=== PATIENT | female | born 1960 | race Caucasian/White ===

== ENCOUNTER 2016-10-16 15:31 | Emergency (ER) | payer OTHER ==
[~2016-10-16] VITALS: Ht 167.6 cm; Wt 72.6 kg
[2016-10-16 16:25] VITALS: BP 129/72
[2016-10-16] MEDS ORDERED: OXYCODONE/APAP 7.5/325 TABLET. PO ONE (17:45)
--- NOTE | 2016-10-16 17:46 | PHYS DOC ---
Past Medical History Past Medical History: Asthma Past Surgical History: No Surgical History Alcohol Use: None Drug Use: None Adult General Chief Complaint Chief Complaint: DENTAL PROBLEM HPI HPI Patient is a 56 year old female who presents with complaint of left mandibular swelling. Patient states that she was seen by dentist yesterday and started on clindamycin for treatment of an abscessed tooth. Patient states that since yesterday the swelling has gotten significantly worse and patient is complaining of 10 out of 10 pain currently. Patient states that she is having difficulty opening her mouth secondary to pain. Patient denies any fevers. Patient has taken a total of 3 doses of her clindamycin. Patient denies history of similar symptoms. Review of Systems Review of Systems Constitutional: Denies fever or chills [] Eyes: Denies change in visual acuity, redness, or eye pain [] HENT: Mandibular swelling, dental pain [] Respiratory: Denies cough or shortness of breath [] Cardiovascular: Denies chest pain or edema [] GI: Denies abdominal pain, nausea, vomiting, bloody stools or diarrhea [] : Denies dysuria or hematuria [] Musculoskeletal: Denies back pain or joint pain [] Integument: Denies rash or skin lesions [] Neurologic: Denies headache, focal weakness or sensory changes [] Endocrine: Denies polyuria or polydipsia [] Current Medications Current Medications Current Medications Medications (Trade) Dose Ordered Sig/Lyndsay Start Time Stop Time Status Last Admin Dose Admin Diphtheria/ Tetanus/Acell Pertussis (Boostrix) 0.5 ml ONCE ONCE 10/16/16 18:00 10/16/16 18:01 DC 10/16/16 17:59 0.5 ML Oxycodone/ Acetaminophen (Percocet 7.5/ 325) 1 tab 1X ONCE 10/16/16 17:45 10/16/16 17:47 DC 10/16/16 17:58 1 TAB Allergies Allergies Allergies Coded Allergies Type Severity Reaction Last Updated Verified No Known Drug Allergies 10/16/16 No Physical Exam Physical Exam Constitutional: Alert, afebrile, appears in moderate to severe discomfort. [] HENT: Normocephalic, atraumatic, bilateral external ears normal, moderate soft tissue swelling along left mandible with direct tenderness to palpation, tenderness and fluctuance along left gingival ridge near tooth #18, oropharynx moist, no oral exudates, nose normal. [] Eyes: PERRLA, EOMI, conjunctiva normal, no discharge. [] Neck: Normal range of motion, no tenderness, supple, no stridor. [] Cardiovascular:Heart rate regular rhythm, no murmur [] Lungs & Thorax: Bilateral breath sounds clear to auscultation [] Abdomen: Bowel sounds normal, soft, no tenderness, no masses, no pulsatile masses. [] Extremities: No tenderness, no cyanosis, no clubbing, ROM intact, no edema. [] Neurologic: Alert and oriented X 3, normal motor function, normal sensory function, no focal deficits noted. [] Current Patient Data Vital Signs Vital Signs Date Time Temp Pulse Resp B/P Pulse Ox O2 Delivery O2 Flow Rate FiO2 10/16/16 17:58 18 Room Air 10/16/16 16:25 98.1 62 129/72 95 98.1 EKG EKG Not performed [] Radiology/Procedures Radiology/Procedures Not performed [] Course & Med Decision Making Course & Med Decision Making Pertinent Labs and Imaging studies reviewed. (See chart for details) Patient had successful incision and drainage of her dental abscess in the emergency department. On reevaluation, patient states that her symptoms are improving. Advised patient to continue on her prescription of clindamycin and pain medication given to her from her previous provider. Advised to follow-up with her dentist as scheduled next week and return to the emergency department for any worsening symptoms. Patient voiced understanding and in agreement with treatment plan. Dragon Disclaimer Dragon Disclaimer This electronic medical record was generated, in whole or in part, using a voice recognition dictation system. Incision and Drainage Indication: Dental abscess Procedure: The patient was positioned appropriately. Local anesthesia was withheld after discussion with the patient. An incision was then made over the apex of the lesion and drainage of approximately 2-3 mL of purulent material was expressed. The patient tolerated the procedure well. Complications: none. Departure Departure Impression: Primary Impression: Dental abscess Disposition: 01 HOME, SELF-CARE Condition: IMPROVED Referrals: NICKI OCHOA MD (PCP) Patient Instructions: Dental Abscess Additional Instructions: Follow-up with your dentist in the next 5 days. Continue your medications as prescribed. Return to the emergency department for any worsening symptoms. LIBERTY GONZALEZ MD Oct 16, 2016 17:46
[2016-10-16] MEDS ORDERED: DIPHTH,PERTUSS(ACELL),TET TOX 0.5 ML DISP.SYRIN. VAX IM ONE (18:00)
== END 2016-10-16 18:02 | disposition home or self-care (01) ==
LOC: ER 15:31
DX: K04.7 Periapical abscess without sinus (principal); J45.909 Unspecified asthma, uncomplicated
CPT/HCPCS: 41800; 90471; 90715; 99284-25